=== PATIENT | male | born 1990 | race Caucasian/White ===

== ENCOUNTER 2018-03-18 14:11 | Emergency (ER) | payer BC ==
[2018-03-18] MEDS: NS 1,000 ML IV (14:40)
[2018-03-18] MEDS: MORPHINE 4 MG/ML 1ML VIAL/SYRINGE (J2270) IV ×2 (14:41→15:08)
[2018-03-18] MEDS: ONDANSETRON 4MG/2ML VIAL (J2405) IV (14:41)
[2018-03-18 14:52] LABS: BASO # 0.1 10^3/uL (0.0-0.2); BASO % 0.7 % (0.0-1.0); EOS # 0.4 10^3/uL (0.0-0.50); EOS % 5.5 % (0.0-3.0); HEMATOCRIT 51.2 % (42.0-52.0); IMMATURE GRANULOCYTE % 0.4 % (0-3.0); KETONE, URINE AUTO RFX TRACE mg/dL (NEGATIVE); LEUKOCYTE ESTERASE UR AUTO RFX NEGATIVE (NEGATIVE); LYMPH # 2.1 10^3/uL (1.5-6.5); LYMPH % 26.7 % (24.0-44.0); MEAN CORPUSCULAR HEMOGLOBIN 32.3 pg (27.0-33.0); MEAN CORPUSCULAR HGB CONC 35.2 g/dl (32.0-36.5); MEAN CORPUSCULAR VOLUME 91.9 fl (80.0-96.0); MONO # 0.6 10^3/uL (0.0-0.8); MONO % 6.9 % (0.0-5.0); MUCUS, URINE RFX SMALL (NEGATIVE); NEUTROPHILS # 4.8 10^3/uL (1.8-7.7); NEUTROPHILS % 59.8 % (36.0-66.0); NITRITE, URINE AUTO RFX NEGATIVE (NEGATIVE); PLATELET COUNT, AUTOMATED 197 10^3/uL (150-450); RBC, URINE AUTO RFX TNTC /HPF (0-3); RED BLOOD COUNT 5.57 10^6/uL (4.30-6.10); RED CELL DISTRIBUTION WIDTH 12.9 % (11.5-14.5); SQUAM EPITHELIAL CELL UR AURFX 0 /HPF (0-6); WBC, URINE AUTO RFX 2 /HPF (0-3)
[2018-03-18 15:08] LABS: ALBUMIN 3.9 GM/DL (3.2-5.2); ALBUMIN/GLOBULIN RATIO 1.39 (1.00-1.93); ALKALINE PHOSPHATASE 74 U/L (45-117); ALT/SGPT 35 U/L (12-78); ANION GAP 12 MEQ/L (8-16); AST/SGOT 13 U/L (7-37); BILIRUBIN,DIRECT 0.4 MG/DL (0.0-0.2); BILIRUBIN,TOTAL 1.3 MG/DL (0.2-1.0); BLOOD UREA NITROGEN 24 MG/DL (7-18); CALCIUM LEVEL 8.8 MG/DL (8.5-10.1); CARBON DIOXIDE LEVEL 25 MEQ/L (21-32); CHLORIDE LEVEL 107 MEQ/L (98-107); CREATININE FOR GFR 1.17 MG/DL (0.70-1.30); GLOMERULAR FILTRATION RATE > 60.0 (>60); GLUCOSE, FASTING 118 MG/DL (70-100); LIPASE 83 U/L (73-393); POTASSIUM SERUM 3.9 MEQ/L (3.5-5.1); SODIUM LEVEL 144 MEQ/L (136-145); TOTAL PROTEIN 6.7 GM/DL (6.4-8.2)
[2018-03-18] MEDS: KETOROLAC 30 MG/ML VIAL (J1885) IV (16:10)
[2018-03-18] MEDS: PERCOCET 5MG/325MG TAB PO (16:10)
== END 2018-03-18 16:45 | disposition home or self-care (01) ==
LOC: M ED 14:11
DX: N20.1 Calculus of ureter (principal); N13.1 Hydronephrosis with ureteral stricture, not elsewhere classified; J45.909 Unspecified asthma, uncomplicated; Z87.891 Personal history of nicotine dependence; Z91.048 Other nonmedicinal substance allergy status
CPT/HCPCS: J2270